=== PATIENT | male | born 1995 | race Caucasian/White ===

== ENCOUNTER 2021-03-28 09:36 | Emergency (ER) | payer SELFPAY ==
[~2021-03-28] VITALS: Ht 182.9 cm; Wt 63.5 kg
[2021-03-28 10:25] LABS: HEMOGLOBIN 15.8 gm/dl (14.0-17.5); RED BLOOD COUNT 5.15 M/UL (4.20-5.50); WHITE BLOOD COUNT 7.6 K/UL (4.5-11.0)
[2021-03-28 10:57] LABS: BUN/CREATININE RATIO 16 (0-10)
[2021-03-30 15:12] LABS: HEMOGLOBIN 16.6 gm/dl (14.0-17.5); RED BLOOD COUNT 5.43 M/UL (4.20-5.50); WHITE BLOOD COUNT 7.2 K/UL (4.5-11.0)
[2021-03-30 15:46] LABS: BUN/CREATININE RATIO 21 (0-10)
== END 2021-03-28 18:11 | disposition short-term general hospital (02) ==
LOC: ER1 09:36
PROVIDERS: Family Medicine; Internal Medicine
DX: U07.1 COVID-19 (principal); R53.1 Weakness
CPT/HCPCS: 36600; 70450; 70496; 70498; 71045; 80053; 82550; 82553; 82803; 82962; 83615; 83874; 84484; 85025; 85027; 85379; 85652; 86140; 93005; 99285; Q9967; U0002

== ENCOUNTER → 2021-06-15 | Day surgery (SDC) | payer OTHER ==
[~2021-06-15] MED LIST: OMEPRAZOLE20 MG PO
== END | disposition home or self-care (01) ==
LOC: OR 07:34
DX: K31.9 Disease of stomach and duodenum, unspecified (principal); K29.70 Gastritis, unspecified, without bleeding; K44.9 Diaphragmatic hernia without obstruction or gangrene; K21.9 Gastro-esophageal reflux disease without esophagitis; Z88.6 Allergy status to analgesic agent; Z79.899 Other long term (current) drug therapy
CPT/HCPCS: J2250; J2704; J7030